=== PATIENT | female | born 1985 | race African-American/Black ===

== ENCOUNTER → 2018-10-20 | Outpatient (CLI) | payer MEDICAID ==
--- NOTE | 2018-10-21 08:50 | RADIOLOGY REPORT (SQ) ---
EXAM DESCRIPTION: MRI LT UPPER JOINT WITHOUT COMPLETED DATE/TIME: 10/20/2018 7:52 pm REASON FOR STUDY: M75.112 INCOMPLETE ROTATR-CUFF TEAR/RUPTR OF L SHOULDER, NOT TRAUMA M75.112 INCOM PLETE ROTATR-CUFF TEAR/RUPTR OF L SHOULDER, NOT COMPARISON: None. TECHNIQUE: Left shoulder images acquired and stored on PACS. Multiplanar imaging to include fat sens itive sequences such as T1, water sensitive sequences such as FST2/STIR, cartilage sensitive sequence s such as FSPD/gradient-echo sequences. LIMITATIONS: None. FINDINGS: BONE MARROW AND CORTEX: No worrisome bone lesions or marrow replacement. No occult fractur es. JOINT OR BURSAL EFFUSION: No significant joint or bursal fluid. No suggestion of loose bodies. GLENO-HUMERAL ARTICULATION: Normal articulation. No subluxation. No cystic change. No osteophytes or cartilage loss. ACROMION AND AC JOINT: Mild anterolateral down slope. This may contribute to impingement. ROTATOR CUFF AND INTERVAL: Suspect mild tendinosis but no high-grade tear. No full-thickness breech evident. No cuff muscle atrophy. No rotator interval tear. No rotator interval thickening to suggest adhesive capsulitis. LABRUM AND BICEPS LABRAL COMPLEX: Allowing for motion artifact, relatively intact. No gross tear o r biceps disease. REMAINDER OF LABRUM AND IGHL : Slight heterogeneity of the posterior labrum, unclear if this is artif act. The inferior labrum and anterior labrum look normal. PERIARTICULAR AND ADJACENT SOFT TISSUES: No masses or abnormal nodes. OTHER: No other significant finding. IMPRESSION: 1. Mild cuff tendinosis without suggestion of significant tear. Acromial morphology as above. TECHNICAL DOCUMENTATION: JOB ID: [id number] [employer]- All Rights Reserved Reading location - IP/workstation name: [email or web address]
== END ==
LOC: RAD 20:15
PROVIDERS: ATTEND Orthopaedic Surgery
DX: M75.112 Incomplete rotator cuff tear or rupture of left shoulder, not specified as traumatic (principal)

== ENCOUNTER 2019-06-08 10:47 | Emergency (ER) | payer MEDICAID ==
[2019-06-08] MEDS ORDERED: FAMOTIDINE 20 MG TABLET PO ONE (11:16)
[2019-06-08] MEDS ORDERED: DEXAMETHASONE SOD PHOS INJ 10 MG/1 ML VIAL IM ONE (11:16)
[2019-06-08] MEDS ORDERED: LORATADINE 10 MG TABLET PO ONE (11:16)
--- NOTE | 2019-06-08 11:24 | ER Document Report ---
ED Skin Rash/Insect Bite/Abscs - General Chief Complaint: Rash Stated Complaint: RASH, HEADACHE,FREQUENT URINATION Time Seen by Provider: 06/08/19 11:12 Primary Care Provider: CHRISTINA SANDOVAL MD [Primary Care Provider] - Follow up as needed MAHENDRA WHITLEY MD [ACTIVE STAFF] - Follow up as needed Mode of Arrival: Ambulatory Information source: Patient Notes: 33-year-old female presented to ED for rash to her bilateral lower legs left lower leg since yesterday. She states she was seen by last week given some steroids for cough and cold so she was not sure if she could take steroids again. She is alert oriented respirations unlabored speaking in full sentences walks with even steady gait. TRAVEL OUTSIDE OF THE [place] IN LAST 30 DAYS: No - HPI Patient complains to provider of: Skin rash/lesion Onset: Yesterday Onset/Duration: Gradual, Intermittent Quality of pain: No pain Severity: None Pain Level: Denies Skin Character: Rash Quality of rash: Itchy Identify cause: No Exacerbated by: Denies Relieved by: Denies Similar symptoms previously: Yes Recently seen / treated by doctor: No - Related Data Allergies/Adverse Reactions: No Known Allergies Allergy (Verified 06/08/19 11:07) Past Medical History - General Information source: Patient - Social History Smoking Status: Never Smoker Chew tobacco use (# tins/day): No Frequency of alcohol use: None Occupation: Your Lives with: Family Family History: Reviewed & Not Pertinent Patient has suicidal ideation: No Patient has homicidal ideation: No - Past Medical History Cardiac Medical History: Reports: None Pulmonary Medical History: Reports: None EENT Medical History: Reports: None Neurological Medical History: Reports: None Endocrine Medical History: Reports: None Renal/ Medical History: Reports: None Malignancy Medical History: Reports: None GI Medical History: Reports: Hx Gastroesophageal Reflux Disease Musculoskeletal Medical History: Reports None Skin Medical History: Reports None Psychiatric Medical History: Reports: Hx Anxiety Traumatic Medical History: Reports: None Infectious Medical History: Reports: None Past Surgical History: Reports: Hx Genitourinary Surgery, Hx Gynecologic Surgery - explorartory - Immunizations Immunizations up to date: Yes Hx Diphtheria, Pertussis, Tetanus Vaccination: Yes Review of Systems - Review of Systems Constitutional: No symptoms reported EENT: No symptoms reported Cardiovascular: No symptoms reported Respiratory: No symptoms reported Gastrointestinal: No symptoms reported Genitourinary: No symptoms reported Female Genitourinary: No symptoms reported Musculoskeletal: No symptoms reported Skin: Rash Hematologic/Lymphatic: No symptoms reported Neurological/Psychological: No symptoms reported -: Yes All other systems reviewed and negative Physical Exam - Vital signs Vitals: Temp Pulse Resp BP Pulse Ox 98.0 F 106 H 16 114/73 99 06/08/19 10:53 06/08/19 10:53 06/08/19 10:53 06/08/19 10:53 06/08/19 10:53 Interpretation: Normal. No: Tachycardic - 88 apical pulse - General General appearance: Appears well, Alert - HEENT Head: Normocephalic, Atraumatic Eyes: Normal Pupils: PERRL - Respiratory Respiratory status: No respiratory distress Chest status: Nontender Breath sounds: Normal Chest palpation: Normal - Cardiovascular Rhythm: Regular Heart sounds: Normal auscultation Murmur: No - Abdominal Inspection: Normal Distension: No distension Bowel sounds: Normal Tenderness: Nontender Organomegaly: No organomegaly - Back Back: Normal, Nontender - Extremities General upper extremity: Normal inspection, Nontender, Normal color, Normal ROM, Normal temperature General lower extremity: Normal inspection, Nontender, Normal color, Normal ROM, Normal temperature, Normal weight bearing. No: Nik's sign - Neurological Neuro grossly intact: Yes Cognition: Normal Orientation: AAOx4 [place] Coma Scale Eye Opening: Spontaneous Rakesh Coma Scale Verbal: Oriented Rakesh Coma Scale Motor: Obeys Commands Rakesh Coma Scale Total: 15 Speech: Normal Motor strength normal: LUE, RUE, LLE, RLE Sensory: Normal - Psychological Associated symptoms: Normal affect, Normal mood - Skin Skin Temperature: Warm Skin Moisture: Dry Skin Color: Normal Location of irregularity: Extremities Character of irregularity: Macular, Fine, Erythematous Course - Re-evaluation Re-evalutation: 06/08/19 11:27 Patient treated with steroids and Pepcid given instructions on these for further use. Patient is to follow-up with her primary or her branch sales and service representative for further treatment. Patient verbalized understanding and agreement with treatment plan and patient was discharged home. - Vital Signs Vital signs: Temp Pulse Resp BP Pulse Ox 97 F L 106 H 16 121/75 96 06/08/19 11:24 06/08/19 10:53 06/08/19 11:24 10/01/19 11:24 06/08/19 11:24 Discharge - Discharge Clinical Impression: Rash and nonspecific skin eruption Condition: Stable Disposition: HOME, SELF-CARE Additional Instructions: You were seen today for a rash. I am not able to tell you today what this rash is caused by. If it does continue to get he will need to go to dermatology. STEROID MEDICATION: You have been given an injection of medicine of the cortisone/steroid class. This medication is used to control inflammation or allergy. It is often continued as a pill for a short period of time, until the acute process subsides. There are usually no side effects from short-term use of cortisone-like medications. Some persons feel an increased sense of well-being and are not sleepy at bedtime. Long-term use of cortisone medications is best avoided, unless required for a severe condition. If your condition does not remit, or relapses after the course of corticosteroid medication, you should consult your physician. Antihistamines An antihistamine has been prescribed to control your symptoms. Antihistamines are used for many reasons, including itching, watering eyes, runny nose, allergic swelling, hives, and insect stings. Antihistamines may cause drowsiness, especially with the first dose. Do not operate machinery or drive while under the effects of the medication. Other common side effects include dry mouth and eyes. In older persons, antihistamines can occasionally cause urinary retention, constipation, and trouble focusing the eyes. Do not combine the medication with alcohol, or with any other medication without talking to your doctor. Acid-Suppressing Medication You have a prescription for medicine which reduces the stomach's secretion of acid. Examples include Zantac, Tagament, and Pepcid. These drugs are often used to allow healing of ulcers or esophagitis. They may be needed to prevent recurrence of ulcers in some patients, or to prevent damage from acid reflux in the esophagus. Take all medication as prescribed, even after the pain is gone. Regular antacids may be added as needed if you have symptoms while taking this medicine. These medications sometimes are prescribed for allergic reactions because they have anti-histaminic effects and relieve the rash and itching of the reaction. There are usually no side effects from this medication. But, in rare cases and particularly in the elderly, serious problems can occur. Contact your doctor if there is fever, rash, hallucinations, confusion, or unusual bruising. Contact your doctor at once if you develop lightheadedness, black or bloody stool, or bloody vomitus. Can also use a mild lotion, Caladryl lotion, or Benadryl lotion. FOLLOW-UP CARE: If you have been referred to a physician for follow-up care, call the physicians office for an appointment as you were instructed or within the next two days. If you experience worsening or a significant change in your symptoms, notify the physician immediately or return to the Emergency Department at any time for re-evaluation. Forms: Return to Work Referrals: MAHENDRA WHITLEY MD [ACTIVE STAFF] - Follow up as needed CHRISTINA SANDOVAL MD [Primary Care Provider] - Follow up as needed
[2019-06-08 11:25] VITALS: BP 121/75
== END 2019-06-08 11:44 | disposition home or self-care (01) ==
LOC: ER 10:47
DX: R21 Rash and other nonspecific skin eruption (principal); L29.8 Other pruritus
CPT/HCPCS: J3490 ×2; J1100; 96372; 99282